=== PATIENT | male | born 1965 | race Caucasian/White ===

== ENCOUNTER 2016-12-22 08:58 | Emergency (ER) | payer SELFPAY ==
--- NOTE | 2016-12-22 14:00 | ER ---
ADMIT: 12/22/2016 RM/LOC: ER [facility] MR#: [id number] [place], [place] [id number] CHRIS GARCIA [address] [place] [address] [place] [address] Emergency Room Report SEX: M AGE: 51 : 1965 DATE: 12/22/2016 See T-sheet for complete H and P. ADDENDUM: A 51-year-old male, who has history of high blood pressure, is not currently on any medications for that, comes in complaining that he thinks he got diabetes. He has been very thirsty lately, has been urinating a lot, and states that he is having some tingling intermittently in his hands and his feet bilaterally. These symptoms have been going on for months now and he actually went out and bought a glucometer several weeks ago and his blood sugars have been running between 200 and 400. I did check CBC, which was unremarkable. Chemistries which showed a glucose of 314. Hemoglobin A1c which was pending. Urinalysis showed glucose greater than 1000 and 1+ ketones. The patient really has no other complaints at this time and his vital signs are stable. I spoke to Dr. George, his primary care physician, and we will start the patient on metformin 1000 mg b.i.d., and he is to call the office to follow up in the next couple of weeks. He is to continue to check his blood sugars regularly and return to the ER for any concerning symptoms. John Roy MD/ kevin JOB #: [id number] CC: John Roy MD, Attending Physician Chris George MD, Family Physician
== END 2016-12-22 11:20 | disposition home or self-care (01) ==
LOC: ER 08:58
DX: E11.9 Type 2 diabetes mellitus without complications (principal); I10 Essential (primary) hypertension